=== PATIENT | male | born 1960 | race Caucasian/White ===

== ENCOUNTER → 2025-01-26 | Outpatient (CLI) | payer SELFPAY ==
--- NOTE | 2025-01-26 11:11 | CT_ITS ---
PROCEDURE: CT SINUS/FACIAL BONES REASON FOR EXAM: SINUSITIS TECHNIQUE: CT of the paranasal sinuses without contrast. Contiguous axial scans of 1.25 mm slice thicknesses. Sagittal and coronal reconstruction images were obtained. One or more dose reduction techniques were used (e.g., automated exposure control, adjustment of mA and/or kv according to patient size, use of iterative reconstruction technique). COMPARISON: None. FINDINGS: Frontal: Marked mucoperiosteal thickening, left frontal sinus. Ethmoid: Severe diffuse mucoperiosteal thickening. Sphenoid: Moderate to severe mucoperiosteal thickening, left side. Mild mucoperiosteal thickening along the medial wall of the right side. Maxillary: Severe left mucoperiosteal thickening. Moderate right mucoperiosteal thickening. Turbinates: Mucosal thickening. Nasal Septum: Mild leftward deviation. Mastoids/Middle Ears: Unremarkable. Bones: Spondylosis of the cervical spine. Beam hardening artifacts related to dental enhancements. CT/Sinus/Facial Bone IMPRESSION: Moderate to severe pansinusitis. Other nonacute findings detailed above. Reading Location: [facility]
== END | disposition home or self-care (01) ==
PROVIDERS: Referring Provider Otolaryngology; Visit Provider Otolaryngology
DX: J32.8 Other chronic sinusitis (principal)
CPT/HCPCS: 70486